=== PATIENT | female | born 1995 | race African-American/Black ===

== ENCOUNTER → 2024-02-24 11:47 | Outpatient (REF) | payer OTHER, SELFPAY ==
[2024-02-24 14:30] LABS: Hepatitis B Surface Antibody Positive
== END ==
LOC: OHS 11:47
PROVIDERS: ATTENDING PHYSICIAN Nurse Practitioner Family
DX: Z23 Encounter for immunization (principal)
CPT/HCPCS: 36415; 86706; 86787